=== PATIENT | female | born 1990 | race Caucasian/White ===

== ENCOUNTER 2022-01-24 13:09 | Emergency (ER) | payer OTHER, MEDICAID, SELFPAY ==
[2022-01-24 13:34] VITALS: BP 113/66; PULSE 98; RESP 13; TEMP 37.6; O2SAT 98; BMI 33.7
--- NOTE | 2022-01-24 13:38 | DI.RAD.S_ITS ---
PROCEDURE: XR CHEST 2V INDICATIONS: cough 9 days TECHNIQUE: 2 views of the chest were acquired. COMPARISON: None. FINDINGS: Surgical changes and devices: None. Lungs and pleura: Increased bronchovascular markings in bilateral hilar region are seen with mild bronchial wall thickening. No definite focal infiltrate. No pleural effusions or pneumothorax. Mediastinum: Mediastinal contours are normal. Heart size is normal. Bones and chest wall: No suspicious bony abnormalities. Soft tissues appear unremarkable. IMPRESSION: Suggestion of mild reactive airway disease such as bronchitis or asthma. No definite focal infiltrate. No pleural effusion or pneumothorax. Dictated by: Calvin Morrison M.D. on 01/24/2022 at 13:48 Approved by: Calvin oMrrison M.D. on 01/24/2022 at 13:49
[2022-01-24] MEDS: DOXYCYCLINE HYCLATE 100 MG TABLET PO (14:45)
[2022-01-24] MEDS: ALBUTEROL/IPRATROPIUM 3 ML AMPUL INH (14:45)
[2022-01-24] MEDS: predniSONE 20 MG TABLET 60 MG PO (14:45)
[2022-01-24] MEDS: KETOROLAC 30 MG/ML VIAL 15 MG IM (14:45)
[2022-01-24 14:55] VITALS: PULSE 101; RESP 18; O2SAT 98
--- NOTE | 2022-01-24 15:25 | ED_ITS ---
HPI - URI/Sore Throat <Frances Moffett, [facility] - Last Filed: 01/24/22 20:10> General Chief Complaint: Upper Respiratory Symptoms Stated Complaint: cough, dizziness, exhaustion, lungs on fire Time Seen by Provider: 01/24/22 14:30 Source: patient Mode of arrival: Ambulatory History of Present Illness HPI Narrative: This is a 32-year-old female with a history of exertional asthma and is a every day smoker who presents to the emergency department with 9 day history of frequent cough, posttussive emesis, shortness of breath headache. Patient states that she has bronchitis every year, she has frequent respiratory i nfections, and states she was seen in the urgent care a few days ago and diagnosed with a cold but they did not do any respiratory testing. Patient denies any recent fever but had a low-grade fever in triage today of 99.8. Has used her albuterol inhaler a few times and it is mildly helped. Patient denies any diarrhea, high fevers, endorses having night sweats a couple of times, denies any wheezing or throat tightness. She denies any chest pain. She states that her cough is not productive. She has been taking Flonase, [id number] cold medicines, and she states nothing is helping. Related Data Previous Rx's Medication Instructions Recorded benzonatate 100 mg capsule 100 mg PO BID PRN #20 cap 01/24/22 benzonatate 100 mg capsule 100 mg PO BID PRN #20 cap 01/24/22 codeine 10 mg-guaifenesin 200 mg/5 10 ml PO Q4-6H PRN #160 ml 01/24/22 mL oral liquid codeine 10 mg-guaifenesin 200 mg/5 10 ml PO Q4-6H PRN #200 ml 01/24/22 mL oral liquid doxycycline hyclate 100 mg capsule 100 mg PO BID 5 Days #10 cap 01/24/22 doxycycline hyclate 100 mg capsule 100 mg PO BID 5 Days #10 cap 01/24/22 methylprednisolone 4 mg tablets in See Rx Instructions .ROUTE 01/24/22 a dose pack (Medrol (Minh)) .COMPLEX #21 ea methylprednisolone 4 mg tablets in See Rx Instructions .ROUTE 01/24/22 a dose pack (Medrol (Minh)) .COMPLEX #21 ea methylprednisolone 4 mg tablets in See Rx Instructions .ROUTE 01/24/22 a dose pack (Medrol (Minh)) .COMPLEX #21 ea Allergies Allergy/AdvReac Type Severity Reaction Status Date / Time No Known Drug Allergies Allergy Verified 01/24/22 13:34 Review of Systems <RANDALL Gonzalez - Last Filed: 01/24/22 20:10> Review of Systems Narrative: General: denies fever, chills, malaise, but endorses having sweats + fatigue Head/Neck: denies headache, neck pain, dizziness Eyes: denies visual changes, eye pain Cardio: denies chest pain, palpitations, edema Respiratory: denies dyspnea, endorses frequent cough which is keeping her up at night. GI: denies abdominal pain, nausea, vomiting, or diarrhea : denies dysuria, hematuria, urinary retention, frequency or incontinence MSK: denies joint pain, muscle weakness Skin: denies rash, itching, skin lesions or other Neuro: denies numbness, tingling Patient History <RANDALL Gonzalez - Last Filed: 01/24/22 20:10> Social History Smoking Status: Current every day smoker Smoking Status: Current every day smoker tobacco type: cigars alcohol intake frequency: holidays/special occasions only Substance Use Type: marijuana Exam <RANDALL Gonzalez - Last Filed: 01/24/22 20:10> Narrative Exam Narrative: Independently reviewed vitals signs and nursing notes. General: cooperative, comfortable, in no acute distress, well developed and well groomed Head: atraumatic, symmetrical facial expressions Neck: supple, atraumatic, without lymphadenopathy. Eyes: pupils equal round and reactive, EOMI, conjunctiva normal Nose: nares patent, no rhinorrhea Mouth/Throat: uvula midline, moist mucus membranes Cardiovascular: regular rate and rhythm, no peripheral edema, warm extremities Respiratory: normal effort, able to speak in complete sentences, frequent cough no audible wheezing, stridor, or rales. No retractions or tachypnea. Breath sounds are slightly tight and diminished but is moving air to all short without abnormal sounds. Patient was given a DuoNeb, her breath sounds were more aerated after neb, cough has lessened in frequency, continues to be nonproductive. GI: abdomen soft, nontender to palpation, nondistended, no masses, no exquisite tenderness with exam, without guarding or rebound. MSK: moves all extremities, ambulatory w/steady gait, neurovascularly intact, no weakness Skin: brisk capillary refill, no rash, no erythema Neuro: normal speech and cognition, A&O x3, normal tone Psych: mental status is grossly normal, congruent mood, normal affect, pleasant and cooperative Initial Vital Signs Initial Vital Signs: Vital Signs Temperature 99.7 F H 01/24/22 13:34 Pulse Rate 98 H 01/24/22 13:34 Respiratory Rate 13 01/24/22 13:34 Blood Pressure 113/66 01/24/22 13:34 Pulse Oximetry 98 01/24/22 13:34 <Zafar Taylor DO - Last Filed: 01/25/22 07:03> Initial Vital Signs Initial Vital Signs: Vital Signs Temperature 99.7 F H 01/24/22 13:34 Pulse Rate 98 H 01/24/22 13:34 Respiratory Rate 13 01/24/22 13:34 Blood Pressure 113/66 01/24/22 13:34 Pulse Oximetry 98 01/24/22 13:34 Course <RANDALL Gonzalez - Last Filed: 01/24/22 20:10> Orders Ordered: Discontinued Medications Albuterol/Ipratropium (Albuterol/Ipratropium 3 Ml Ampul) 3 ml INH NOW ONE Stop: 01/24/22 14:38 Last Admin: 01/24/22 14:45 Dose: 3 ml Documented by: HOWIE Doxycycline Hyclate (Doxycycline Hyclate 100 Mg Tablet) 100 mg PO NOW ONE Stop: 01/24/22 14:38 Last Admin: 01/24/22 14:45 Dose: 100 mg Documented by: HOWIE Guaifenesin/Codeine Phosphate (Codeine/Guaifenesin Liquid 5ml Udc) 10 ml PO NOW ONE Stop: 01/24/22 15:20 Last Admin: 01/24/22 15:32 Dose: 10 ml Documented by: JUANA Ketorolac Tromethamine (Ketorolac 30 Mg/Ml Vial) 15 mg IM NOW ONE Stop: 01/24/22 14:38 Last Admin: 01/24/22 14:45 Dose: 15 mg Documented by: HOWIE Prednisone (Prednisone 20 Mg Tablet) 60 mg PO NOW ONE Stop: 01/24/22 14:38 Last Admin: 01/24/22 14:45 Dose: 60 mg Documented by: HOWIE Vital Signs Vital signs: Vital Signs - 8 hr 01/24/22 13:34 01/24/22 14:55 01/24/22 15:38 Temperature 99.7 F H Pulse Rate 98 H 101 H 94 H Respiratory Rate 13 18 18 Blood Pressure 113/66 133/65 Pulse Oximetry 98 98 98 <Zafar Taylor DO - Last Filed: 01/25/22 07:03> Orders Ordered: Discontinued Medications Albuterol/Ipratropium (Albuterol/Ipratropium 3 Ml Ampul) 3 ml INH NOW ONE Stop: 01/24/22 14:38 Last Admin: 01/24/22 14:45 Dose: 3 ml Documented by: HOWIE Doxycycline Hyclate (Doxycycline Hyclate 100 Mg Tablet) 100 mg PO NOW ONE Stop: 01/24/22 14:38 Last Admin: 01/24/22 14:45 Dose: 100 mg Documented by: HOWIE Guaifenesin/Codeine Phosphate (Codeine/Guaifenesin Liquid 5ml Udc) 10 ml PO NOW ONE Stop: 01/24/22 15:20 Last Admin: 01/24/22 15:32 Dose: 10 ml Documented by: JUANA Ketorolac Tromethamine (Ketorolac 30 Mg/Ml Vial) 15 mg IM NOW ONE Stop: 01/24/22 14:38 Last Admin: 01/24/22 14:45 Dose: 15 mg Documented by: HOWIE Prednisone (Prednisone 20 Mg Tablet) 60 mg PO NOW ONE Stop: 01/24/22 14:38 Last Admin: 01/24/22 14:45 Dose: 60 mg Documented by: HOWIE Vital Signs Vital signs: Vital Signs - 8 hr 01/24/22 13:34 01/24/22 14:55 01/24/22 15:38 Temperature 99.7 F H Pulse Rate 98 H 101 H 94 H Respiratory Rate 13 18 18 Blood Pressure 113/66 133/65 Pulse Oximetry 98 98 98 MDM - URI/Sore Throat <RANDALL Gonzalez - Last Filed: 01/24/22 20:10> Imaging Data Chest x-ray: Radiologist's Impression: PROCEDURE:? XR CHEST 2V ? INDICATIONS:? cough 9 days ? TECHNIQUE:? 2 views of the chest were acquired.? ? COMPARISON:? None. ? FINDINGS:? ? Surgical changes and devices:? None.? ? Lungs and pleura:? Increased bronchovascular markings in bilateral hilar region are seen with mild bronchial wall thickening.? No definite focal infiltrate.? No pleural effusions or pneumothorax.? ? Mediastinum:? Mediastinal contours are normal.? Heart size is normal.? ? Bones and chest wall:? No suspicious bony abnormalities.? Soft tissues appear unremarkable.? ? IMPRESSION:? Suggestion of mild reactive airway disease such as bronchitis or asthma.? No definite focal infiltrate.? No pleural effusion or pneumothorax. ? ? Dictated by: Calvin Morrison M.D. on 01/24/2022 at 13:48 ? ? Approved by: Calvin Morrison M.D. on 01/24/2022 at 13:49 ? MDM Narrative Medical decision making narrative: This is a 32-year-old female presents to the emergency department with 9 days of cough, fever, persistent and ongoing cough which is keeping her up at night with a history of everyday smoking, bronchitis infections in the past, asthma history, and postnasal drip. Patient improved after a DuoNeb today, breath yen nds are clear throughout but were slightly diminished prior to her neb with a frequent dry cough. She was treated with prednisone, DuoNeb, she improved after these 2 medications, she was also given guaifenesin with codeine, ketorolac 15 mg IM, and doxycycline. She presented with a low-grade fever, mild tachycardia, this could be due to dehydration, but her x-ray does show mild reactive airway disease such as bronchitis or asthma, no definite focal infiltrates, no pleural effusion or pneumothorax per radiologist. Patient understands to take her medications as prescribed, return to the emergency department for any worsening of her symptoms. This is most likely pneumonitis/bronchitis, patient is nontoxic appearing, she did have a low-grade fever and 9+ days of symptoms so I opted to treat her with antibiotics as she his some signs of increased bronchovascular markings and mild bronchial wall thickening on x-ray. Imaging and treatment have been discussed with patient, she states understanding, she understands to return to the emergency department for any worsening. Patient is appropriate and amenable to discharge home. Vital signs are stable on repeat examination is unremarkable. Patient has been informed of results. Patient has been given strict return to ER precautions for any new or worsening symptoms. Patient understands to follow up closely with outpatient providers as instructed. Patient understands plan and agrees to discharge home. All questions and concerns answered at this time. Discharge Plan Departure Patient Disposition: Home Clinical Impression: Bronchitis Upper respiratory infection Qualifiers: URI type: unspecified URI Qualified Code(s): J06.9 - Acute upper respiratory infection, unspecified Asthma exacerbation Qualifiers: Asthma severity: mild Asthma persistence: intermittent Qualified Code(s): J45.21 - Mild intermittent asthma with (acute) exacerbation Instructions: Asthma -- Adult, DI for Acute Bronchitis Activity Restrictions/Additional Instructions: *You have been diagnosed with an asthma exacerbation due to your illness. Your x-ray shows mild bronchial wall thickening consistent with bronchitis. No signs of pneumonia lungs at this time. Because you had a fever today and an elevated heart rate, we will treat you with antibiotics because it has been over 10 days. Please take the steroids for the next 5 days, use your albuterol inhaler as needed, take ibuprofen and Tylenol as needed for your fever, and take codeine cough syrup as long as that is helpful. Please stay hydrated with plenty to drink, continue taking Flonase morning and night and an allergy pill if this is helpful. *What to do: *Please continue to take your regular medications as directed. [x ] New medication prescriptions sent to your pharmacy: [[facility] ] [ ] New medication written as a paper prescription [ ] No new medications given *Please follow up with your primary care provider in 2-3 days, call for an appointment. Let them know you were seen in the Emergency Department and that we asked that you be seen for follow-up. We will electronically transmit a record of today's note if your PCP is in our system *If you do not have a primary care provider please contact [phone] to establish care with one of the [facility] primary care providers. *Return to Emergency Department if you should have any new, worsening or concerning symptoms, such as [fever greater than 101F, chills, worsening pain, persistent vomiting or other bothersome symptoms] Prescriptions: New codeine-guaifenesin 10-200 mg/5 mL liquid 10 ml PO Q4-6H PRN (Reason: cough) Qty: 160 0RF methylprednisolone [Medrol (Minh)] 4 mg tablets,dose pack See Rx Instructions .ROUTE .COMPLEX Qty: 21 0RF Rx Instructions: orally per package directions, start taking / doxycycline hyclate 100 mg capsule 100 mg PO BID 5 Days Qty: 10 0RF benzonatate 100 mg capsule 100 mg PO BID PRN (Reason: cough) Qty: 20 0RF benzonatate 100 mg capsule 100 mg PO BID PRN (Reason: cough) Qty: 20 0RF methylprednisolone [Medrol (Minh)] 4 mg tablets,dose pack See Rx Instructions .ROUTE .COMPLEX Qty: 21 0RF Rx Instructions: orally per package directions codeine-guaifenesin 10-200 mg/5 mL liquid 10 ml PO Q4-6H PRN (Reason: cough) Qty: 200 0RF methylprednisolone [Medrol (Minh)] 4 mg tablets,dose pack See Rx Instructions .ROUTE .COMPLEX Qty: 21 0RF Rx Instructions: orally per package directions start 01/25 doxycycline hyclate 100 mg capsule 100 mg PO BID 5 Days Qty: 10 0RF <Zafar Taylor, DO - Last Filed: 01/25/22 07:03> Cosign ED Attending Cosignature Attestation: Dr Taylor Co-Sign Statement: I was available for consultation during this patient's emergency department visit. This chart is signed by myself for administrative purposes only. I did not have direct contact with this patient during this visit. They were seen independently by the APC.
[2022-01-24] MEDS: CODEINE/GUAIFENESIN LIQUID 5ML UDC 10 ML PO (15:32)
[2022-01-24 15:38] VITALS: BP 133/65; PULSE 94; RESP 18; O2SAT 98
== END 2022-01-24 15:39 | disposition home or self-care (01) ==
PROVIDERS: Emergency Provider Nurse Practitioner Critical Care Medicine
DX: J40 Bronchitis, not specified as acute or chronic (principal); J45.21 Mild intermittent asthma with (acute) exacerbation; J06.9 Acute upper respiratory infection, unspecified
CPT/HCPCS: 71046; 94150; 94640; 96372; 99284; J1885

== ENCOUNTER 2022-08-23 15:30 | Emergency (ER) | payer OTHER, MEDICAID, SELFPAY ==
[2022-08-23 15:46] VITALS: BP 119/72; PULSE 73; RESP 18; TEMP 36.4; O2SAT 97; BMI 31.9
--- NOTE | 2022-08-23 18:10 | ED_ITS ---
HPI - URI/Sore Throat <Leonora Frederick PA-C - Last Filed: 08/23/22 21:13> General Chief Complaint: Upper Respiratory Symptoms Stated Complaint: Sick/Cough/SOB/Aches/Ear Pain Time Seen by Provider: 08/23/22 15:48 Source: patient Mode of arrival: Ambulatory History of Present Illness HPI Narrative: Patient is 32 years old female, who has been battling cold symptoms for about 2 days now, she is exposed to to her sick daughter who is here as well with influenza a virus, Patient reports now having wheezing rhonchi, fever fluctuating between 99.9- 101, chest tightness, persistent cough. She is a smoker of 1 pack per day however due to chest burning stops smoking, admits to productive cough with green-yellow sputum. Related Data Previous Rx's Medication Instructions Recorded azithromycin 250 mg tablet See Rx Instructions PO .COMPLEX #6 08/23/22 tabs azithromycin 250 mg tablet See Rx Instructions PO .COMPLEX #6 08/23/22 tabs oseltamivir 75 mg capsule (Tamiflu) 75 mg PO BID 5 days #10 caps 08/23/22 oseltamivir 75 mg capsule (Tamiflu) 75 mg PO BID 5 days #10 caps 08/23/22 Allergies Allergy/AdvReac Type Severity Reaction Status Date / Time No Known Drug Allergies Allergy Verified 08/23/22 17:53 Review of Systems <Lenoora Frederick PA-C - Last Filed: 08/23/22 21:13> Review of Systems Narrative: GENERAL: Admits to chills, fatigue, malaise, fever, sweats. HEENT: Denies sinus pain, ear pain, sore throat, difficulty swallowing, dizziness. RESPIRATORY: Admits to dyspnea, productive cough, with green sputum, has some wheezing, denies hemoptysis. CARDIOVASCULAR: Denies chest pain, palpitations, orthopnea, edema, GASTROINTESTINAL: Denies nausea, vomiting, abdominal pain, diarrhea, constipation, melena. : Denies dysuria, frequency, incontinence, hematuria, urinary retention. MUSCULOSKELETAL: denies weakness, joint pain, or bony pain SKIN: Denies rash, skin lesions, or other NEUROLOGIC: Denies weakness, admits to headache, numbness, change in speech, con fusion, seizures, incoordination. Patient History <NAYELI Gooden Last Filed: 08/23/22 21:13> Social History Smoking Status: Former smoker Smoking Status: Former smoker tobacco type: cigars alcohol intake frequency: holidays/special occasions only Substance Use Type: marijuana Exam <NAYELI Gooden Last Filed: 08/23/22 21:13> Narrative Exam Narrative: GENERAL: 32 year old patient appears stated age. Well-developed patient, in mild distress due to feeling poorly HEAD: Atraumatic. Normocephalic. EYES: Pupils equal round and reactive. Extraocular motions intact. No scleral i cterus. No injection or drainage. ENT: Nasopharynx erythematous, without bleeding, purulent drainage. Throat with erythema, there is no tonsillar hypertrophy or exudate. Airway patent. NECK: Trachea midline. Non tender CARDIOVASCULAR: Regular rate and rhythm without murmurs, gallops, or rubs. RESPIRATORY: Scattered wheezes, rales, at bases not cleared with cough GASTROINTESTINAL: Abdomen soft, non-tender, nondistended. EXTREMITIES: No edema or joint tenderness. BACK: Nontender without deformity or crepitance. No flank tenderness. NEURO: AOx3. No focal deficits SKIN: No rash or erythema of visible areas Initial Vital Signs Initial Vital Signs: Vital Signs Temperature 97.6 F 08/23/22 15:46 Pulse Rate 73 08/23/22 15:46 Respiratory Rate 18 08/23/22 15:46 Blood Pressure 119/72 08/23/22 15:46 Pulse Oximetry 97 08/23/22 15:46 Oxygen Delivery Method 08/23/22 15:46 <Zafar Taylor DO - Last Filed: 08/24/22 07:12> Initial Vital Signs Initial Vital Signs: Vital Signs Temperature 97.6 F 08/23/22 15:46 Pulse Rate 73 08/23/22 15:46 Respiratory Rate 18 08/23/22 15:46 Blood Pressure 119/72 08/23/22 15:46 Pulse Oximetry 97 08/23/22 15:46 Oxygen Delivery Method 08/23/22 15:46 Course <NAYELI Gooden Last Filed: 08/23/22 21:13> Vital Signs Vital signs: Vital Signs - 8 hr 08/23/22 15:46 08/23/22 18:14 Temperature 97.6 F Pulse Rate 73 77 Respiratory Rate 18 17 Blood Pressure 119/72 125/76 Pulse Oximetry 97 98 Oxygen Delivery Method Room Air Room Air <Zafar AraizaDO camilo - Last Filed: 08/24/22 07:12> Vital Signs Vital signs: Vital Signs - 8 hr 08/23/22 15:46 08/23/22 18:14 Temperature 97.6 F Pulse Rate 73 77 Respiratory Rate 18 17 Blood Pressure 119/72 125/76 Pulse Oximetry 97 98 Oxygen Delivery Method Room Air Room Air MDM - URI/Sore Throat <Leonora Frederick PA-C - Last Filed: 08/23/22 21:13> MDM Narrative Medical decision making narrative: Discussed with patient etiologies for patient's symptoms considered including: Exposure to influenza a, perhaps patient is having viral illness In turn, it can exacerbate her smoker bronchitis, Discussed patient needs to start on below therapies. Findings and discharge diagnosis discussed with patient followed by verbalization of understanding Return precautions discussed with patient/family whom verbalize understanding. Discharge Plan Departure Patient Disposition: Home Clinical Impression: Upper respiratory infection, Influenza, Acute bronchiolitis with bronchospasm Instructions: Acute Bronchitis, DI for Influenza -- Adult Activity Restrictions/Additional Instructions: *You have been diagnosed with acute bronchitis and Influenza A *What to do: *Please continue to take your regular medications as directed. New medication prescriptions sent to your pharmacy: Azithromycin Tamiflu *Please follow up with your primary care provider in 2-3 days, call for an appointment. Let them know you were seen in the Emergency Department and that we ask that you be seen in follow up. We will electronically transmit a record of today's note if your PCP is in our system *If you do not have a primary care provider please contact the [facility] Resource line at [phone]. They will ask some questions about your medical history and help get you set up with a doctor in the community. *Return to Emergency Department if you should have any new, worsening or concerning symptoms, such as fever greater than 101 F, shaking chills, SOB cough worsening pain, persistent vomiting or other bothersome symptoms Prescriptions: New azithromycin 250 mg tablet See Rx Instructions .ROUTE .COMPLEX Qty: 6 0RF Rx Instructions: For 250 mg dose pack: take 500 mg today (day 1), then 250 mg for 4 days (days 2-5) oseltamivir [Tamiflu] 75 mg capsule 75 mg PO BID 5 Days Qty: 10 0RF azithromycin 250 mg tablet See Rx Instructions PO .COMPLEX Qty: 6 0RF Rx Instructions: For 250 mg dose pack: take 500 mg today (day 1), then 250 mg for 4 days (days 2-5) oseltamivir [Tamiflu] 75 mg capsule 75 mg PO BID 5 Days Qty: 10 0RF Discontinued codeine-guaifenesin 10-200 mg/5 mL liquid 10 ml PO Q4-6H PRN (Reason: cough) Qty: 160 0RF methylprednisolone [Medrol (Minh)] 4 mg tablets,dose pack See Rx Instructions .ROUTE .COMPLEX Qty: 21 0RF Rx Instructions: orally per package directions, start taking 01/25 benzonatate 100 mg capsule 100 mg PO BID PRN (Reason: cough) Qty: 20 0RF benzonatate 100 mg capsule 100 mg PO BID PRN (Reason: cough) Qty: 20 0RF methylprednisolone [Medrol (Minh)] 4 mg tablets,dose pack See Rx Instructions .ROUTE .COMPLEX Qty: 21 0RF Rx Instructions: orally per package directions codeine-guaifenesin 10-200 mg/5 mL liquid 10 ml PO Q4-6H PRN (Reason: cough) Qty: 200 0RF methylprednisolone [Medrol (Minh)] 4 mg tablets,dose pack See Rx Instructions .ROUTE .COMPLEX Qty: 21 0RF Rx Instructions: orally per package directions start 01/25 Referrals: Miscellaneous,Doctor, MD [Primary Care Provider] - Visit Report Forms: Patient Portal/API <Zafar Taylor DO - Last Filed: 08/24/22 07:12> Cosign ED Attending Cosignature Attestation: Dr Taylor Co-Sign Statement: I was available for consultation during this patient's emergency department visit. This chart is signed by myself for administrative purposes only. I did not have direct contact with this patient during this visit. They were seen independently by the APC.
[2022-08-23 18:14] VITALS: BP 125/76; PULSE 77; RESP 17; O2SAT 98
== END 2022-08-23 18:14 | disposition home or self-care (01) ==
PROVIDERS: Emergency Provider Physician Assistant Medical
DX: J10.1 Influenza due to other identified influenza virus with other respiratory manifestations (principal); J21.9 Acute bronchiolitis, unspecified; F17.210 Nicotine dependence, cigarettes, uncomplicated
CPT/HCPCS: 99281